=== PATIENT | female | born 2000 | race Caucasian/White ===

== ENCOUNTER → 2019-05-06 11:18 | Outpatient (BNVA) | payer MEDICAID, SELFPAY | PROVIDERS: Family Provider Nurse Practitioner Family; PCP Nurse Practitioner Family; Visit Provider Nurse Practitioner Family | DX: R05 Cough (principal); Z11.3 Encounter for screening for infections with a predominantly sexual mode of transmission; H61.23 Impacted cerumen, bilateral; J10.1 Influenza due to other identified influenza virus with other respiratory manifestations | CPT/HCPCS: 85025; 86592; 87491; 87591; 87661; 87804; 87806 ==

== ENCOUNTER → 2019-06-10 09:18 | Outpatient (BNVA) | payer MEDICAID, SELFPAY | PROVIDERS: PCP Nurse Practitioner Family; Visit Provider Nurse Practitioner Family | DX: N39.0 Urinary tract infection, site not specified (principal); Z30.011 Encounter for initial prescription of contraceptive pills | CPT/HCPCS: 81001; 87086 ==

== ENCOUNTER → 2019-10-22 15:07 | Outpatient (BNVA) | payer MEDICAID, SELFPAY | PROVIDERS: PCP Nurse Practitioner Family; Visit Provider Nurse Practitioner Family | DX: N30.01 Acute cystitis with hematuria; R30.0 Dysuria; N92.6 Irregular menstruation, unspecified | CPT/HCPCS: 81000; 81025 ==

== ENCOUNTER → 2020-03-15 09:05 | Outpatient (BNVA) | payer MEDICAID, SELFPAY | PROVIDERS: PCP Nurse Practitioner Family; Visit Provider Nurse Practitioner Family | DX: R30.0 Dysuria (principal); N39.0 Urinary tract infection, site not specified | CPT/HCPCS: 81000; 87077; 87086; 87184 ==

== ENCOUNTER → 2020-03-16 13:51 | Outpatient (BNVA) | payer MEDICAID, SELFPAY | PROVIDERS: PCP Nurse Practitioner Family; Visit Provider Nurse Practitioner Women's Health | DX: O09.299 Supervision of pregnancy with other poor reproductive or obstetric history, unspecified trimester (principal); R82.71 Bacteriuria; O99.891 Other specified diseases and conditions complicating pregnancy; Z3A.00 Weeks of gestation of pregnancy not specified | CPT/HCPCS: 80307; 84315; 85027; 86592; 86762; 86803; 86850; 86900; 87340; 87806 ==

== ENCOUNTER → 2020-03-22 08:16 | Outpatient (BNVA) | payer MEDICAID, SELFPAY | PROVIDERS: PCP Nurse Practitioner Family; Visit Provider Obstetrics & Gynecology | DX: Z34.82 Encounter for supervision of other normal pregnancy, second trimester (principal) | CPT/HCPCS: 84315; 87491; 87591; 88175 ==

== ENCOUNTER → 2020-04-20 09:16 | Outpatient (BNVA) | payer MEDICAID, SELFPAY | PROVIDERS: PCP Nurse Practitioner Family; Visit Provider Nurse Practitioner Women's Health | DX: O99.320 Drug use complicating pregnancy, unspecified trimester (principal); O99.891 Other specified diseases and conditions complicating pregnancy; O26.899 Other specified pregnancy related conditions, unspecified trimester; R82.71 Bacteriuria; Z67.91 Unspecified blood type, Rh negative; O09.299 Supervision of pregnancy with other poor reproductive or obstetric history, unspecified trimester | CPT/HCPCS: 80307; 84315; 87086 ==

== ENCOUNTER → 2020-06-06 13:08 | Outpatient (BNVA) | payer MEDICAID, SELFPAY | PROVIDERS: PCP Nurse Practitioner Family; Visit Provider Nurse Practitioner Women's Health | DX: O99.320 Drug use complicating pregnancy, unspecified trimester (principal); O26.899 Other specified pregnancy related conditions, unspecified trimester; O99.891 Other specified diseases and conditions complicating pregnancy; Z67.91 Unspecified blood type, Rh negative; R82.71 Bacteriuria; O09.299 Supervision of pregnancy with other poor reproductive or obstetric history, unspecified trimester; Z3A.00 Weeks of gestation of pregnancy not specified | CPT/HCPCS: 80307; 84315 ==

== ENCOUNTER → 2020-07-04 10:56 | Outpatient (BNVA) | payer MEDICAID, SELFPAY | PROVIDERS: PCP Nurse Practitioner Family; Visit Provider Obstetrics & Gynecology | DX: O26.899 Other specified pregnancy related conditions, unspecified trimester (principal); Z67.91 Unspecified blood type, Rh negative; O99.891 Other specified diseases and conditions complicating pregnancy; O99.320 Drug use complicating pregnancy, unspecified trimester; R82.71 Bacteriuria; O09.299 Supervision of pregnancy with other poor reproductive or obstetric history, unspecified trimester; Z3A.00 Weeks of gestation of pregnancy not specified | CPT/HCPCS: 82950; 84315; 85027; 86850 ==

== ENCOUNTER → 2020-07-18 09:32 | Outpatient (BNVA) | payer MEDICAID, SELFPAY | PROVIDERS: PCP Nurse Practitioner Family; Visit Provider Obstetrics & Gynecology | DX: O99.320 Drug use complicating pregnancy, unspecified trimester (principal); O26.899 Other specified pregnancy related conditions, unspecified trimester; O99.891 Other specified diseases and conditions complicating pregnancy; Z67.91 Unspecified blood type, Rh negative; R82.71 Bacteriuria; O09.299 Supervision of pregnancy with other poor reproductive or obstetric history, unspecified trimester; O99.019 Anemia complicating pregnancy, unspecified trimester; R87.612 Low grade squamous intraepithelial lesion on cytologic smear of cervix (LGSIL); Z3A.00 Weeks of gestation of pregnancy not specified | CPT/HCPCS: 80307; 84315 ==

== ENCOUNTER → 2020-07-31 09:47 | Outpatient (BNVA) | payer MEDICAID, SELFPAY | PROVIDERS: PCP Nurse Practitioner Family; Visit Provider Obstetrics & Gynecology | DX: R82.90 Unspecified abnormal findings in urine (principal); R87.612 Low grade squamous intraepithelial lesion on cytologic smear of cervix (LGSIL); O99.019 Anemia complicating pregnancy, unspecified trimester; O99.320 Drug use complicating pregnancy, unspecified trimester; O26.899 Other specified pregnancy related conditions, unspecified trimester; O99.891 Other specified diseases and conditions complicating pregnancy; Z67.91 Unspecified blood type, Rh negative; R82.71 Bacteriuria; O09.299 Supervision of pregnancy with other poor reproductive or obstetric history, unspecified trimester; Z3A.00 Weeks of gestation of pregnancy not specified | CPT/HCPCS: 84315; 87086 ==

== ENCOUNTER → 2020-08-29 10:31 | Outpatient (BNVA) | payer MEDICAID, SELFPAY | PROVIDERS: PCP Nurse Practitioner Family; Visit Provider Obstetrics & Gynecology | DX: Z34.80 Encounter for supervision of other normal pregnancy, unspecified trimester (principal) | CPT/HCPCS: 84315; 85025; 87081 ==

== ENCOUNTER 2020-09-11 23:05 | Outpatient (CLI) | payer MEDICAID, SELFPAY ==
[2020-09-11 23:05] VITALS: BMI 21.4
[2020-09-11 23:18] VITALS: BP 106/60; PULSE 78; TEMP 36.6
[2020-09-11 23:33] VITALS: BP 108/63; PULSE 76
[2020-09-12 00:34] VITALS: TEMP 35.6
[2020-09-12 00:35] VITALS: BP 107/65; PULSE 68
[2020-09-12 00:51] VITALS: BP 102/59; PULSE 83
== END 2020-09-12 01:09 | disposition home or self-care (01) ==
LOC: OPOB 23:05 → OBGYN 23:12
PROVIDERS: PCP Nurse Practitioner Family; Visit Provider Obstetrics & Gynecology
DX: O26.899 Other specified pregnancy related conditions, unspecified trimester (principal); Z3A.00 Weeks of gestation of pregnancy not specified; R10.9 Unspecified abdominal pain
CPT/HCPCS: 59025; 84315; 87635; 99211

== ENCOUNTER 2020-09-12 02:39 | Inpatient (IN) | payer MEDICAID, SELFPAY ==
[2020-09-12] VITALS (50 sets, daily range): BP systolic 87–127; BP diastolic 50–75; PULSE 60–110; RESP 16–18; TEMP 36.1–36.9; O2SAT 97–100; BMI 21.4
[2020-09-12] MEDS: lactated ringers 1,000 ML 999 ML IV ×2 (03:47→06:00)
[2020-09-12 04:05] LABS: Basophils # 0.1 10^3/uL (0.0-0.1); Basophils % 0.4 %; Eosinophils # 0.1 10^3/uL (0.0-0.8); Eosinophils % 0.7 %; Hematocrit 30.4 % (37.0-47.0); Hemoglobin 10.5 g/dL (11.5-15.3); Lymphocytes % 24.3 %; Mean Corpuscular HGB Conc 34.5 g/dL (30.0-36.0); Mean Corpuscular Hemoglobin 32.1 pg (28.0-34.0); Monocytes # 0.9 10^3/uL (0.2-0.9); Monocytes % 5.7 %; Neutrophils # 11.07 10^3/uL (1.8-7.7); Neutrophils % 68.2 %; Nucleated Red Blood Cells % 0 %; Platelet Count 245 10^3/cmm (130-400); Red Blood Count 3.27 10^6/uL (4.1-5.3); Red Cell Distribution Width 14.6 % (12.1-15.1); White Blood Count 16.2 10^3/uL (4.0-10.0)
--- NOTE | 2020-09-12 04:25 | ANES.PREANE2 ---
Pre-Anesthetic Assessment Pre-Anesthetic Assessment: Height/Weight: Height 1.68 m Weight 60.328 kg Temp Pulse BP Pulse Ox 97.0 F L 83 106/59 100 09/12/20 02:54 09/12/20 04:53 09/12/20 04:53 09/12/20 04:51 Preop Diagnosis: IUP Proposed Procedure: labor epidural Was Beta Bhumi taken within 24 hours: N/A Was Clonidine taken within 24 hours: N/A Social: Social History: No alcohol and No tobacco Exam: Pre-Anes Outpt Exam: alert, oriented x 3, clear to auscultation bilaterally and regular rate & rhythm Airway: Submandibular: WNL Cervical ROM: WNL MP: 2 History/ROS: No significant history except as noted Pulmonary: Pulmonary: None reported CV/HEM: CV/HEM: None reported : : None reported Hepatic: Hepatic: None reported GI: GI: None reported Metabolic: Metabolic: None reported Musc/skel: Musc/skel: None reported Neuropsych: Neuropsych: None reported Anesthetic Plan: ASA status: 1 Anesthesia: Anesthesia Evaluation Risk of > 500 ml blood loss (7ml/kg in children): No Meds/Allergies Current Medications: Current Medications Generic Name Dose Route Start Last Admin Trade Name Freq PRN Reason Stop Dose Admin Lactated Ringer's 1,000 mls @ 999 m ls/hr 09/12/20 03:29 09/12/20 03:47 Lactated Ringers IV 999 mls/hr .Q1H1M PRN Administration See label comment s PFSH Anesthesia PFSH: Medical History History of asthma As a child-using inhaler occasionally. Last used an inhaler and had symptoms at the age of 13 No pertinent past medical history Denies diabetes, asthma, hypertension, seizures, DVT/PE PMD: [facility] Surgical History S/P dilation and curettage 2019-done for hemorrhage immediately after delivery Family History Grandmother Heart disease Maternal Hypertension Maternal Denies family history of Colon cancer Ovarian cancer Diabetes Hypercholesteremia Breast cancer Uterine cancer Thyroid condition Stroke Female Reproductive History: Date of last menstrual period: 09/12/20 : 2 Data Anesthesia CBC & Chem 7: 09/12/20 03:00 Other Labs: Laboratory Results - last 48 hr 09/12/20 03:00 WBC 16.2 H RBC 3.27 L Hgb 10.5 L Hct 30.4 L MCV 93.0 MCH 32.1 MCHC 34.5 RDW 14.6 Plt Count 245 MPV 11.0 H Neut % (Auto) 68.2 Lymph % (Auto) 24.3 [place] % (Auto) 5.7 Eos % (Auto) 0.7 Baso % (Auto) 0.4 Neut # (Auto) 11.07 H Lymph # (Auto) 4.0 [place] # (Auto) 0.9 Eos # (Auto) 0.1 Baso # (Auto) 0.1 Nucleated RBC % (auto) 0 Nucleated RBCs # 0.0 Cardiac Studies: No Data to Display
--- NOTE | 2020-09-12 04:34 | PC.NURSE ---
Orders received from Dr. Rodriguez to obtain type and screen on the patient.
--- NOTE | 2020-09-12 04:59 | ANES.PROC ---
Anesthesia Procedures Procedure/Date: 09/12/20 Epidural: Time Out Performed: Yes Consents Signed: Procedure Consent Consent: requested by attending/covering physician Lumbar Level: L4-L5 Epidural position: sitting Epidural procedure: sterile prep of area, 1% lidocaine to numb the area, 18 g needle, negative for paresthesia passed, neg for paresthesia, test dose given, 1.5% xylocaine 1:200k epi (4ml), placed PCEA, no systemic response, sterile dressing applied, L.U.D. no apparent complications and 0.2% Ropiavacaine @ mls/hr (13)
[2020-09-12] MEDS: miSOPROStol 200 mcg Tablet 800 MCG PR (07:11)
[2020-09-12] MEDS: oxytocin 30 UNIT/500 ML BAG 600 UNIT IV (07:11)
--- NOTE | 2020-09-12 07:26 | P.HPUD_ITS ---
Labor & Delivery H&P Update Date of Procedure: September 12, 2020 Date H&P Performed: 09/11/20 H&P update information: I have reviewed H&P completed within last 30 days, I have examined patient prior to procedure, No changes to prior documentation and H[place] [facility] [place] on date indicated Admission Diagnosis: Preop diagnosis: IUP
--- NOTE | 2020-09-12 07:26 | PM.DELIVERY ---
Delivery Note: Date of delivery: September 12, 2020 - PRE-DELIVERY DIAGNOSIS: 19-year-old 2 para 1-0-0-1 at 38 weeks and 5 days gestation Active labor GBS negative Covid unknown Rh negative History of drug use in the History of hemorrhage Anemia on iron POST-DELIVERY DIAGNOSIS: Vaginal delivery on 09/12/2020 PROCEDURE: Vaginal delivery on 09/12/2020 ANESTHESIA: Epidural DELIVERING PHYSICIAN: Stacia Rodriguez FACOG PRE-DELIVERY COURSE: Ms. Malhotra is a 19-year-old 2 para 1-0-0-1 at 38 weeks and 5 days who presented to labor and delivery on 09/12/2020 with reports of increasing contractions. She had been seen the previous night with contractions but after observation for 1 hour made no cervical change and was sent home. She returned at about 3 AM with worsening contractions and was 5 to 6 cm 80% and -1 station with a bulging bag and regular contractions and a category 1 tracing. She was admitted in active labor and an epidural was placed per her request. After the epidural she was comfortable and at 5:30 AM was noted to be 8-9 cm, 90% and 0 station at which point artificial rupture of membranes was performed with clear fluid. She was fully dilated at 6 AM on 09/12/2020 and was allowed to labor down. She was set up in lithotomy position ready to push at 6:47 AM DELIVERY NOTE: She was set up in lithotomy position and was pushing effectively. She was noted to be +3 station and continued pushing well. The head delivered in YUDITH position, nuchal cord x1 was present but was unable to be reduced. The shoulders and rest of the body followed with her next push and delivered through the cords without any difficulty. The baby's mouth and nose were suctioned and the baby was placed on the mother's belly. Once cord pulsations stopped the cord was clamped and cut. The placenta delivered spontaneously intact with membranes and was discarded. The fundus was noted to be firm and well contracted. The lower segment however was boggy and was bleeding. Given this and her history of hemorrhage 800 mcg of Cytotec was placed per rectum and bimanual massage continued after which the tone of the lower uterine segment improved. The vagina and cervix were inspected and no cervical or sulcal lacerations were noted. The perineum was intact except for bilateral labial lacerations which were bleeding and these were repaired with 3-0 Vicryl on an SH in a continuous interlocking fashion. Good hemostasis and reapproximation was obtained. Baby boy, Briana born at 7:01 AM on 09/12/2020 with 9/9, weighing 6 pounds 14 ounces, 3105 g, 20 inches long. Placenta was delivered spontaneously intact with membranes at 7:05 AM. Cotyledons were intact , centrally inserted umbilical cord with 3 vessels noted. Estimated blood loss- 250 mL. Complications-none, both baby and mother were left to recover in a stable condition This documentation was created by [employer] cost estimating manager software (known for inherent cost estimating manager error). Every effort was made to assure accuracy of cost estimating manager. Any obvious errors or omissions should be clarified with the author of the document. Coding Level of Care Code Acute Forensic Technician for Chg Fwd History History History 2 Term 2 Miscarriages/Ectopic 0 0 Living Children 2 Other History: 2 Para 2001, x 2 1--> 05/20/2018, female, (Maricruz) 7 lbs 9oz, 39 weeks gestation, vaginal delivery, epidural anesthesia, delivered at [facility] in [place], [place]. Delivery complicated by hemorrhage which required a D&C and back reballoon -she does not know why she had a hemorrhage. States that she delivered within 10 hours of being in the hospital. She did receive two or 3 units of blood however does not remember details of this 2--> 09/12/2020, male (Briana) weighing 6 pounds 14 ounces at 38 weeks and 5 days-active labor, vaginal delivery with epidural anesthesia delivered by Dr. Rodriguez at [facility]. Bilateral labial tears-intact perineum.
[2020-09-12 08:02] LABS: Amphetamines Screen Urine Negative (Negative); Barbiturates Screen Urine Negative (Negative); Benzodiazepines Screen Urine Negative (Negative); Cocaine Screen Urine Negative (Negative); Opiate Screen Urine Negative (Negative); PCP Screen Urine Negative (Negative); THC Screen Urine Negative (Negative)
[2020-09-12] MEDS: ibuprofen 800 mg tablet PO ×2 (09:39→21:29)
[2020-09-12] MEDS: prenatal vitamin Capsule 1 CAP PO (09:39)
[2020-09-12] MEDS: lanolin oint 7 gm 1 APPLIC TOPICAL (09:39)
[2020-09-12] MEDS: benzocaine-menthol 78 gm Canister 1 SPRAY TOPICAL (09:39)
[2020-09-12] MEDS: docusate sodium 100 mg Capsule PO ×2 (09:39→21:30)
--- NOTE | 2020-09-12 10:16 | PC.NURSE ---
pt up to bathroom without difficulty. void 900ml. bereket care performed by pt. gown/pad changed. dermoplast discussed and used by pt.
--- NOTE | 2020-09-12 10:32 | PC.NURSE ---
pt ambulated to OB8 without difficulty. oriented to room and call light. proud parent pack discussed. ice water and juice provided.
[2020-09-12 21:41] LABS: Hematocrit 29.6 % (37.0-47.0); Hemoglobin 9.9 g/dL (11.5-15.3); Mean Corpuscular HGB Conc 33.4 g/dL (30.0-36.0); Mean Corpuscular Hemoglobin 31.6 pg (28.0-34.0); Mean Corpuscular Volume 94.6 fL (81-99); Mean Platelet Volume 10.4 fL (7.4-10.4); Platelet Count 181 10^3/cmm (130-400); Red Blood Count 3.13 10^6/uL (4.1-5.3); Red Cell Distribution Width 14.4 % (12.1-15.1); White Blood Count 15.5 10^3/uL (4.0-10.0)
[2020-09-13 03:30] VITALS: BP 116/58; PULSE 83; TEMP 36.8
[2020-09-13 04:20] VITALS: BP 116/58; PULSE 82; RESP 17; TEMP 36.8
--- NOTE | 2020-09-13 07:16 | PM.DCS ---
Discharge Providers Date of Admission: 09/12/20 02:39 Date of Discharge: September 13, 2020 Attending Provider at Admission: Stacia Wan MD Attending Provider at Discharge: Stacia Wan MD Primary Care Provider: PRE-DELIVERY DIAGNOSIS: 19-year-old 2 para 1-0-0-1 at 38 weeks and 5 days gestation Active labor GBS negative Covid unknown Rh negative History of drug use in the History of hemorrhage Anemia on iron POST-DELIVERY/DISCHARGE DIAGNOSIS: Vaginal delivery on 09/12/2020 PROCEDURE: Vaginal delivery on 09/12/2020 ANESTHESIA: Epidural DELIVERING PHYSICIAN: Stacia Rodriguez FACOG PRE-DELIVERY COURSE: Ms. Malhotra is a 19-year-old 2 para 1-0-0-1 at 38 weeks and 5 days who presented to labor and delivery on 09/12/2020 with reports of increasing contractions. She had been seen the previous night with contractions but after observation for 1 hour made no cervical change and was sent home. She returned at about 3 AM with worsening contractions and was 5 to 6 cm 80% and -1 station with a bulging bag and regular contractions and a category 1 tracing. She was admitted in active labor and an epidural was placed per her request. After the epidural she was comfortable and at 5:30 AM was noted to be 8-9 cm, 90% and 0 station at which point artificial rupture of membranes was performed with clear fluid. She was fully dilated at 6 AM on 09/12/2020 and was allowed to labor down. She was set up in lithotomy position ready to push at 6:47 AM DELIVERY NOTE: She was set up in lithotomy position and was pushing effectively. She was noted to be +3 station and continued pushing well. The head delivered in YUDITH position, nuchal cord x1 was present but was unable to be reduced. The shoulders and rest of the body followed with her next push and delivered through the cords without any difficulty. The baby's mouth and nose were suctioned and the baby was placed on the mother's belly. Once cord pulsations stopped the cord was clamped and cut. The placenta delivered spontaneously intact with membranes and was discarded. The fundus was noted to be firm and well contracted. The lower segment however was boggy and was bleeding. Given this and her history of hemorrhage 800 mcg of Cytotec was placed per rectum and bimanual massage continued after which the tone of the lower uterine segment improved. The vagina and cervix were inspected and no cervical or sulcal lacerations were noted. The perineum was intact except for bilateral labial lacerations which were bleeding and these were repaired with 3-0 Vicryl on an SH in a continuous interlocking fashion. Good hemostasis and reapproximation was obtained. Baby boy, Briana born at 7:01 AM on 09/12/2020 with 9/9, weighing 6 pounds 14 ounces, 3105 g, 20 inches long. Placenta was delivered spontaneously intact with membranes at 7:05 AM. Cotyledons were intact , centrally inserted umbilical cord with 3 vessels noted. Estimated blood loss- 250 mL. Complications-none, both baby and mother were left to recover in a stable condition HOSPITAL COURSE: She underwent an uncomplicated vaginal delivery on 09/12/2020. She did well on day 0 and was ambulating well, tolerating regular diet, voiding freely, passing flatus. She was breast-feeding without difficulty and bonding well with her son. She did not want him circumcised. Pain was well-controlled with by mouth pain medication. She denied nausea, vomiting, fever, chills, shortness of breath, leg pain. She had moderate vaginal bleeding. On day # 1 she continued to do well with stable vital signs and stable hemoglobin at 9.9. She was discharged home on day 1 in a stable condition, as she desired early discharge. Warning signs for endometritis, mastitis, DVT/PE were reviewed with her. Post delivery activity restrictions were also reviewed with her at all her questions were answered to her satisfaction. Plans on using pills or NuvaRing for contraception and we will start this at her 6-week visit. She also received RhoGam on 09/12/2020 prior to discharge EXAM AT DISCHARGE: Gen.: No acute distress Heart: S1-S2 heard, regular rate and rhythm Lungs: Clear to auscultation bilaterally Abdomen: Soft, fundus firm below umbilicus, Legs: No calf tenderness, trace bilateral pitting pedal edema. CONDITION AT DISCHARGE: Stable This documentation was created by [employer] motor vehicle field representative software (known for inherent motor vehicle field representative error). Every effort was made to assure accuracy of motor vehicle field representative. Any obvious errors or omissions should be clarified with the author of the document. Reason for Visit Reason for Visit: contractions Physical Exam Urinary Catheter Management^: Mcelroy: Cath Placed During This Visit: yes, but has since been removed by the nurse Reason for Continuing Indwelling Catheter: Accurate Measurement of Urinary Output in Critically Ill Patients Urinary Catheter Date of Insertion: 09/12/20 Urinary Catheter Time of Insertion: 05:10 Date Urinary Catheter Removed: 09/12/20 Time Urinary Catheter Discontinued: 06:35 Discharge Data Data Completed and Pending: Labs from last 24 hours 09/12/20 09/12/20 09/12/20 21:35 21:35 05:15 WBC 15.5 H RBC 3.13 L Hgb 9.9 L Hct 29.6 L MCV 94.6 MCH 31.6 MCHC 33.4 RDW 14.4 Plt Count 181 MPV 10.4 Urine Opiates Scre en Negative Ur Barbiturates Sc reen Negative Ur Phencyclidine S crn Negative Ur Amphetamines Sc reen Negative U Benzodiazepines Scrn Negative Urine Cocaine Scre en Negative U Marijuana (THC) Screen Negative Blood Type Rho(D) Type Antibody Screen Antibody Identific ation Screen Negative 09/12/20 03:00 WBC RBC Hgb Hct MCV MCH MCHC RDW Plt Count MPV Urine Opiates Scre en Ur Barbiturates Sc reen Ur Phencyclidine S crn Ur Amphetamines Sc reen U Benzodiazepines Scrn Urine Cocaine Scre en U Marijuana (THC) Screen Blood Type O Negative Rho(D) Type Negative / 0 Antibody Screen Positive Antibody Identific ation Anti-D Screen Vitals: Last Vital Signs Temp 98.3 F 09/13/20 04:20 Pulse 82 09/13/20 04:20 Resp 17 09/13/20 04:20 BP 116/58 09/13/20 04:20 Pulse Ox 99 09/12/20 17:06 Discharge Plan Discharge Patient Disposition: Home Condition: Stable Prescriptions: New docusate sodium 100 mg Capsule 100 mg PO BID PRN (Reason: constipation) Qty: 30 RF: 0 ibuprofen 800 mg tablet 800 mg PO Q8H Qty: 30 RF: 0 Continued prenat.vits,blaze,lyp-wnop-ogxnu Tablet 1 tab PO DAILY RF: 0 Discontinued ferrous sulfate 325 mg (65 mg iron) tablet 325 mg PO BID Qty: 60 RF: 0 Discharge Orders: Discharge Order (Routine); Ordered 09/13/20 Ordered By: Stacia Wan Referrals: Stacia Wan MD [Physician] - 10/24/20 12:30 pm (Your 6 week post- appointment is scheduled for 10/24 @ 12:30 with ) Discharge Diet: Usual diet Patient Instructions: Vitamins (By mouth), Pre-eclampsia and Eclampsia (DC), Bleeding (DC), OB Discharge Report, OB Food/Drug Interaction Guide, Opioid Safety, OB Proud Parent Packet, OB Vaginal Deliveries - [facility] Activity Restrictions/Additional Instructions: Pelvic rest for 6 weeks, no heavy lifting for 6 weeks 6-week with Dr. Rodriguez Discharge Attestations Time Spent in Discharge Care*: greater than 30 min Quality Metrics Clinical Quality Measures During this hospital stay, did patient experience: None Coding Level of Care Code Acute Chg FW DC note
[2020-09-13] MEDS: ibuprofen 800 mg tablet PO (08:57)
[2020-09-13] MEDS: prenatal vitamin Capsule 1 CAP PO (08:57)
[2020-09-13] MEDS: docusate sodium 100 mg Capsule PO (08:57)
[2020-09-13 10:13] VITALS: BP 94/59; PULSE 83; RESP 15; TEMP 36.7; O2SAT 99
== END 2020-09-13 10:56 | disposition home or self-care (01) | DRG 806 ==
LOC: OPOB 02:44 → OBGYN 02:45 → OPOB 06:59 → OBGYN 09-13 07:18
PROVIDERS: Admitting Provider Obstetrics & Gynecology; PCP Nurse Practitioner Family; Visit Provider Obstetrics & Gynecology
DX: O99.02 Anemia complicating childbirth (principal); O36.0930 Maternal care for other rhesus isoimmunization, third trimester, not applicable or unspecified; Z37.0 Single live birth; D64.9 Anemia, unspecified; O69.2XX0 Labor and delivery complicated by other cord entanglement, with compression, not applicable or unspecified; Z3A.38 38 weeks gestation of pregnancy; O75.89 Other specified complications of labor and delivery; J45.909 Unspecified asthma, uncomplicated; R87.612 Low grade squamous intraepithelial lesion on cytologic smear of cervix (LGSIL)
CPT/HCPCS: 36415; 36430; 51702; 59025; 59409; 80306; 80500; 85025; 85027; 85460; 86850; 86870; 86900; 90384; 98960; 99211; J2795

== ENCOUNTER → 2021-04-02 13:49 | Outpatient (BNVA) | payer MEDICAID, SELFPAY | PROVIDERS: PCP Nurse Practitioner Family; Visit Provider Obstetrics & Gynecology | DX: Z12.4 Encounter for screening for malignant neoplasm of cervix (principal); R87.612 Low grade squamous intraepithelial lesion on cytologic smear of cervix (LGSIL) | CPT/HCPCS: 88175 ==

== ENCOUNTER → 2021-10-22 10:40 | Outpatient (BNVA) | payer MEDICAID, SELFPAY | PROVIDERS: PCP Nurse Practitioner Family; Visit Provider Nurse Practitioner Family | DX: M54.9 Dorsalgia, unspecified (principal); R39.9 Unspecified symptoms and signs involving the genitourinary system; N39.0 Urinary tract infection, site not specified | CPT/HCPCS: 81000; 87086 ==

== ENCOUNTER → 2021-10-29 10:36 | Outpatient (BNVA) | payer MEDICAID, SELFPAY | PROVIDERS: PCP Nurse Practitioner Family; Visit Provider Nurse Practitioner Family | DX: N39.0 Urinary tract infection, site not specified (principal) | CPT/HCPCS: 81000 ==

== ENCOUNTER → 2021-11-06 11:13 | Outpatient (BNVA) | payer MEDICAID, SELFPAY | PROVIDERS: PCP Nurse Practitioner Family | DX: R10.2 Pelvic and perineal pain (principal); Z72.51 High risk heterosexual behavior | CPT/HCPCS: 81003; 87086; 87491; 87591; 87661 ==

== ENCOUNTER 2021-11-07 23:46 | Emergency (ER) | payer MEDICAID, SELFPAY ==
[2021-11-07 23:59] VITALS: BMI 17.8
[2021-11-08 00:04] VITALS: BP 107/69; PULSE 74; RESP 17; TEMP 35.9; O2SAT 99
[2021-11-08 00:44] LABS: Bilirubin Urine Neg (Negative); Blood Urine 3+ (Negative); Glucose Urine UA Norm (Normal); Ketones Urine Negative (Negative); Leukocyte Esterase Urine Negative (Negative); Nitrate Urine Negative (Negative); Protein Urine Trace (Negative); Urine Appearance Cloudy (CLEAR); Urine Color Dark Yellow (Yellow); Urobilinogen Urine Norm (Negative); pH Urine 6.5 (5-7)
[2021-11-08 00:45] LABS: Add Urine Culture? Yes; Add Urine Microscopic? YES; Amorphous Sediment Urine 2+ /hpf; Bacteria Urine TRACE /hpf; RBC Urine TOO NUMEROUS TO CNT /hpf (0-2); Squamous Epithelial Cell Urine 0-4 /hpf (0-5); WBC Urine 0-4 /hpf (0-5)
== END 2021-11-08 00:40 | disposition left against medical advice (07) ==
PROVIDERS: Emergency Medicine; Emergency Provider Physician Assistant; PCP Nurse Practitioner Family
DX: Z53.21 Procedure and treatment not carried out due to patient leaving prior to being seen by health care provider (principal)
CPT/HCPCS: 81001; 87086

== ENCOUNTER → 2022-05-27 13:40 | Outpatient (BNVA) | payer MEDICAID, SELFPAY | PROVIDERS: PCP Nurse Practitioner Family; Visit Provider Nurse Practitioner Women's Health | DX: R87.612 Low grade squamous intraepithelial lesion on cytologic smear of cervix (LGSIL) (principal); Z11.3 Encounter for screening for infections with a predominantly sexual mode of transmission | CPT/HCPCS: 87491; 87591; 87661; 88175 ==

== ENCOUNTER → 2023-01-24 12:31 | Outpatient (BNVA) | payer MEDICAID, SELFPAY | PROVIDERS: PCP Nurse Practitioner Family; Visit Provider Obstetrics & Gynecology | DX: Z01.818 Encounter for other preprocedural examination (principal); R87.612 Low grade squamous intraepithelial lesion on cytologic smear of cervix (LGSIL) | CPT/HCPCS: 81025; 84315; 88305 ==

== ENCOUNTER → 2023-04-16 14:43 | Outpatient (BNVA) | payer MEDICAID, SELFPAY | PROVIDERS: PCP Nurse Practitioner Family; Visit Provider Nurse Practitioner Family | DX: R30.0 Dysuria (principal) | CPT/HCPCS: 81000 ==

== ENCOUNTER → 2023-09-11 13:20 | Outpatient (BNVA) | payer MEDICAID, SELFPAY | PROVIDERS: PCP Nurse Practitioner Family; Visit Provider Nurse Practitioner Family | DX: Z30.9 Encounter for contraceptive management, unspecified (principal) | CPT/HCPCS: 81025 ==

== ENCOUNTER → 2024-03-25 12:52 | Outpatient (BNVA) | payer MEDICAID, SELFPAY | PROVIDERS: PCP Nurse Practitioner Family; Visit Provider Nurse Practitioner Women's Health | DX: R87.612 Low grade squamous intraepithelial lesion on cytologic smear of cervix (LGSIL) (principal) | CPT/HCPCS: 87624 ==

== ENCOUNTER → 2024-08-23 13:37 | Outpatient (BNVA) | payer MEDICAID, SELFPAY | PROVIDERS: PCP Nurse Practitioner Family; Visit Provider Clinical Nurse Specialist Adult Health | DX: R63.4 Abnormal weight loss (principal) | CPT/HCPCS: 80053; 82306; 82607; 82728; 82746; 83550; 84439; 84443; 85025 ==